=== PATIENT | female | born 1955 ===

== ENCOUNTER 2018-04-25 11:50 | Emergency (ER) | payer BC ==
[2018-04-25 11:59] VITALS: BP 135/77; PULSE 63; RESP 18; TEMP 97.9; O2SAT 98
[2018-04-25] MEDS ORDERED: Lidocaine 5% Patch TD STA (12:16)
[2018-04-25] MEDS ORDERED: Lidocaine 5% Patch TD ONE (12:22)
--- NOTE | 2018-04-25 13:26 | C.PDOC ---
History Of Present Illness 63yo female, comes to ER with complaints of pain to her right flank area. She denies any trauma or injury but states she works standing up and has long work hours. She denies any fever, chills, dysuria or hematuria. She reports the pain is worse at night and while attempting to sleep. She denies any weakness, numbness, tingling, back pain. No other medical complaints. Time Seen by Provider: 04/25/18 12:08 Chief Complaint (Nursing): Back Pain History Per: Patient History/Exam Limitations: no limitations Onset/Duration Of Symptoms: Days Current Symptoms Are (Timing): Still Present Quality Of Discomfort: "Pain" Previous Symptoms: None Associated Symptoms: denies: Incontinence, New Weakness, New Numbness Additional History Per: Patient Past Medical History Reviewed: Historical Data, Nursing Documentation, Vital Signs Vital Signs: Last Vital Signs Temp 97.9 F 04/25/18 11:55 Pulse 63 04/25/18 11:55 Resp 18 04/25/18 11:55 BP 135/77 04/25/18 11:55 Pulse Ox 98 04/25/18 13:45 - Medical History PMH: HTN Surgical History: No Surg Hx Family History: States: No Known Family Hx - Social History Hx Alcohol Use: No Hx Substance Use: No Review Of Systems Except As Marked, All Systems Reviewed And Found Negative. Constitutional: Negative for: Fever, Chills Genitourinary: Negative for: Dysuria, Frequency, Hematuria Musculoskeletal: Positive for: Other (right flank pain). Negative for: Back Pain Neurological: Negative for: Weakness, Numbness Physical Exam - Physical Exam Appears: Non-toxic Skin: Warm, Dry Head: Atraumatic, Normacephalic Eye(s): bilateral: Normal Inspection Neck: Normal ROM, Supple Chest: Symmetrical Cardiovascular: Rhythm Regular Respiratory: Normal Breath Sounds Back: Normal Inspection, No CVA Tenderness, No Vertebral Tenderness, No Decreased ROM, No Muscle Spasm, No Paraspinal Tenderness, No Straight Leg Raising, Other (no swelling or redness noted to area of flank pain) Extremity: Normal ROM, No Pedal Edema, No Deformity Neurological/Psych: Oriented x3 ED Course And Treatment O2 Sat by Pulse Oximetry: 98 (RA) Pulse Ox Interpretation: Normal Medical Decision Making Medical Decision Making: Impression: musculoskeletal pain Plan: -- Motrin 600mg PO -- Tylenol 975mg PO -- Lidocaine patch Patient reports improvement in pain and is stable for discharge home. Instructed to follow up with PMD in 2-3 days. Disposition Counseled Patient/Family Regarding: Diagnosis, Need For Followup, Rx Given - Disposition Referrals: Tyson Maher MD [Non-Staff] - Disposition: HOME/ ROUTINE Disposition Time: 13:24 Condition: STABLE Prescriptions: diaZEpam [Valium] 5 mg PO TID #12 tab Ibuprofen [Motrin] 600 mg PO TID #15 tab Instructions: Muscle and Bone Pain (DC) Forms: Gen Discharge Inst Citizen [place], [employer] (Citizen [place]) - POA Present On Arrival: None - Clinical Impression Clinical Impression: Musculoskeletal back pain - Scribe Statement The provider has reviewed the documentation as recorded by the Scribe (Mago Henry) Provider Attestation: All medical record entries made by the Scribe were at my direction and personally dictated by me. I have reviewed the chart and agree that the record accurately reflects my personal performance of the history, physical exam, medical decision making, and the department course for this patient. I have also personally directed, reviewed, and agree with the discharge instructions and disposition.
== END 2018-04-25 13:34 | disposition home or self-care (01) ==
LOC: C.ER 11:50
DX: M54.9 Dorsalgia, unspecified (principal); I10 Essential (primary) hypertension